=== PATIENT | male | born 1950 | race Caucasian/White ===

== ENCOUNTER 2017-09-16 17:01 | Inpatient (IN) ==
[2017-09-16] MEDS ORDERED: Pantoprazole 40 MG VIAL IVP ONE (17:02)
[2017-09-16] MEDS ORDERED: 0.9 % Sodium Chloride 1,000 ML IVC ONE ×2 (17:11)
--- NOTE | 2017-09-16 17:21 | Emergency Department Note ---
Disposition Clinical Impression: Symptomatic anemia GI bleed Qualifiers: GI bleed type/associated pathology: melena Qualified Code(s): K92.1 - Melena Disposition: Admitted As Inpatient Condition: Serious Time of Disposition: 19:09 General Adult HPI - General Chief complaint: ED Weakness Stated complaint: Weakness Time Seen by Provider: 09/16/17 17:02 Nursing Notes Reviewed: Yes Vital Signs Reviewed: Yes - History of Present Illness HPI Narrative: 67-year-old male complains of blood in his stools accommodation of bright red wiping and black stools. Patient states he has been having shortness of breath and lightheadedness over the past 2 days. Patient was seen at the [facility] earlier today. He is found to have hemoglobin 7.5 and transferred to a [place] for evaluation. Patient has a history of prior GI bleed. Patient's last transfusion was greater than 4 months ago over the summer. He denies any abdominal pain or chest pain. - Related Data Home Medications Medication Instructions Recorded Confirmed Aspirin Enteric Coated [Aspirin EC] 81 mg PO DAILY 09/16/17 09/16/17 Atorvastatin Calcium [Lipitor] 20 mg PO HS 09/16/17 09/16/17 Cyanocobalamin (Vitamin B-12) 1,000 mcg PO DAILY 09/16/17 09/16/17 [Vitamin B12] Desipramine [Norpramine] 150 mg PO HS 09/16/17 09/16/17 Ergocalciferol (VITAMIN D2) 400 unit PO BID 09/16/17 09/16/17 [Vitamin D] Ferrous Sulfate 650 mg PO TIDWM 09/16/17 09/16/17 Insulin NPH Human Isophane 30 unit SQ HS 09/16/17 09/16/17 [Novolin N] Losartan Potassium [Cozaar] 100 mg PO DAILY 09/16/17 09/16/17 Metformin HCl [Glucophage] 1,000 mg PO BID 09/16/17 09/16/17 Metoprolol Tartrate 75 mg PO BID 09/16/17 09/16/17 Omeprazole [PriLOSEC] 20 mg PO BIDAC 09/16/17 09/16/17 Perphenazine 4 mg PO BID 09/16/17 09/16/17 Perphenazine 16 mg PO HS 09/16/17 09/16/17 hydroCHLOROthiazide 25 mg PO DAILY 09/16/17 09/16/17 [Hydrochlorothiazide] Allergies Allergy/AdvReac Type Severity Reaction Status Date / Time lisinopril AdvReac See Verified 09/16/17 19:31 Comments Varenicline AdvReac See Verified 09/16/17 19:31 Comments All systems ED: reviewed and negative except as stated. Review of Systems: As Per HPI Constitutional: Reports: weakness. Denies: fever, chills Eyes: Denies: vision change ENT ED: Denies: congestion Cardiovascular: Reports: dyspnea on exertion. Denies: chest pain Gastrointestinal: Reports: melena. Denies: abdominal pain, nausea, vomiting, diarrhea, hematemesis Genitourinary: Denies: urgency, dysuria, frequency, hematuria Past Medical History - Past Medical History Attestation: Yes The following information was validated with the patient. Source: patient, nursing notes reviewed Physical Exam Vital Signs Temperature 97.5 F L 09/16/17 17:14 Pulse Rate 86 09/16/17 17:14 Respiratory Rate 18 09/16/17 17:14 Blood Pressure 151/63 09/16/17 17:14 O2 Sat by Pulse Oximetry 100 09/16/17 17:14 Temperature 97.5 F L 09/16/17 17:14 Pulse Rate 86 09/16/17 17:14 Respiratory Rate 18 09/16/17 17:14 Blood Pressure 151/63 09/16/17 17:14 O2 Sat by Pulse Oximetry 100 09/16/17 17:14 Oxygen Delivery Oxygen Delivery Room Air 59-year-old male who is alert and oriented 3 and in no acute distress. He has some visible pallor. Patient also has conjunctival pallor. Patient has multiple vital sign except for blood pressure. Blood pressure 151/63 - General Limitations: no limitations - Head Head exam: atraumatic, normocephalic, normal inspection - Eye Eye exam: Present: normal appearance, PERRL, EOMI - ENT ENT exam: normal exam, normal oropharynx, mucous membranes moist - Neck Neck exam: Present: normal inspection, full ROM, trachea midline - Chest Chest inspection: Present: normal inspection, symmetric chest wall rise - Respiratory Respiratory exam: Present: normal lung sounds bilaterally - Cardiovascular Cardiovascular exam: Present: regular rate, normal rhythm, normal heart sounds - Abdominal Exam Abdominal exam: Present: soft, Non-Tender. Absent: tenderness, distention, guarding, rebound, rigidity - Rectal Exam Rectal exam: Present: normal rectal tone, heme (+) stool, black stool - Extremities Exam Extremities exam: Present: normal inspection, full ROM. Absent: tenderness, normal capillary refill (Delayed), pedal edema - Back Exam Back exam: Present: normal inspection, full ROM. Absent: tenderness, CVA tenderness (R), CVA tenderness (L) - Neurological Exam Neurological exam: Present: alert, oriented X3 - Skin Skin exam: Present: warm, dry, intact, pallor Course Vital Signs Temperature 97.5 F L 09/16/17 17:14 Pulse Rate 86 09/16/17 17:14 Respiratory Rate 18 09/16/17 17:14 Blood Pressure 151/63 09/16/17 17:14 O2 Sat by Pulse Oximetry 100 09/16/17 17:14 Temperature 97.5 F L 09/16/17 17:22 Pulse Rate 91 09/16/17 18:53 Respiratory Rate 15 09/16/17 18:53 Blood Pressure 121/57 09/16/17 18:53 O2 Sat by Pulse Oximetry 100 09/16/17 18:53 Oxygen Delivery Oxygen Delivery Room Air Medical Decision Making - MDM Narrative Medical decision making narrative: Patient brought in from the [facility] for possible GI bleed. Patient has a hemoglobin of 7.5 at the [facility]. Stool guaiac here is positive for blood. Patient has a hemoglobin 7.6 for us here. Patient's symptomatic and will require transfusion 1 unit. Patient is receiving IV hydration of 2 L. Current plan is for patient to be admitted for transfusion and evaluation for upper or lower GI bleeding sources. Patient may require upper and lower endoscopy. Gastroenterology does not accept patients after [address] Merino of Gen. surgery is on board for any emergent interventions overnight. Gastroenterology will need to be consulted in the morning. Dr. Bowie the hospitalist as accepted patient for admission. Also spoke to Dr. Jeffries the hospitalist on the night crew to inform him that Dr. Campos is on board if Pt needs an endoscopic procedure overnight. - Lab Data Lab results reviewed: Yes I reviewed the patient's lab results. Lab results narrative: Short CBC 09/16/17 Range/Units 17:37 WBC 6.1 (4.3-11.1) K/mcL Hgb 7.6 L (12.9-16.9) g/dL Hct 24.0 L (37.5-50.1) % Plt Count 253 (140-400) K/mcL Neutrophils # 4.8 (1.6-8.9) K/mcL BMP 09/16/17 Range/Units 17:37 Sodium 135 L (136-145) mEq/L Potassium 4.9 (3.5-5.1) mEq/L Chloride 109 H (98-107) mEq/L Carbon Dioxide 19 L (23-29) mEq/L BUN 62 H (8-23) mg/dL Creatinine 1.00 (0.70-1.30) mg/dL Glucose 219 H (70-105) mg/dL Calcium 8.6 (8.6-10.3) mg/dL Cardiac Enzymes 09/16/17 Range/Units 17:37 Troponin I < 0.03 (< 0.04) ng/mL Result diagrams: 09/16/17 17:37 09/16/17 17:37 Lab Results 09/16/17 09/16/17 09/16/17 Range/Units 17:21 17:37 17:37 WBC 6.1 (4.3-11.1) K/mcL RBC 2.55 L (4.19-5.50) M/mcL Hgb 7.6 L (12.9-16.9) g/dL Hct 24.0 L (37.5-50.1) % MCV 94.1 (83.0-100.0) fL MCH 29.8 (28.0-33.3) pg MCHC 31.7 (31.6-35.5) g/dL RDW 14.2 (11.5-14.5) % Plt Count 253 (140-400) K/mcL MPV 10.5 (9.4-12.4) fL Immature Gran % 0.7 (0-4) % Seg Neutrophils % 77.7 % Lymphocytes % 15.2 % Monocytes % 4.9 % Eosinophils % 0.8 % Basophils % 0.7 % Neutrophils # 4.8 (1.6-8.9) K/mcL Lymphocytes # 0.9 (0.6-4.6) K/mcL Monocytes # 0.3 (0.0-1.3) K/mcL Eosinophils # 0.1 (0.0-0.6) K/mcL Basophils # 0.0 (0.0-0.2) K/mcL Sodium 135 L (136-145) mEq/L Potassium 4.9 (3.5-5.1) mEq/L Chloride 109 H (98-107) mEq/L Carbon Dioxide 19 L (23-29) mEq/L BUN 62 H (8-23) mg/dL Creatinine 1.00 (0.70-1.30) mg/dL Est GFR ( Amer) > 60 (> 60) Est GFR (Non-Af Amer) > 60 (> 60) BUN/Creatinine Ratio 62 H (6-26) Glucose 219 H (70-105) mg/dL POC Glucose (58-89) Calculated Osmolality 304 H (280-300) Calcium 8.6 (8.6-10.3) mg/dL Magnesium 1.8 (1.6-2.6) mg/dL Troponin I (< 0.04) ng/mL Stool Occult Blood Positive A (Negative) Blood Type Crossmatch 09/16/17 09/16/17 09/16/17 Range/Units 17:37 17:37 18:57 WBC (4.3-11.1) K/mcL RBC (4.19-5.50) M/mcL Hgb (12.9-16.9) g/dL Hct (37.5-50.1) % MCV (83.0-100.0) fL MCH (28.0-33.3) pg MCHC (31.6-35.5) g/dL RDW (11.5-14.5) % Plt Count (140-400) K/mcL MPV (9.4-12.4) fL Immature Gran % (0-4) % Seg Neutrophils % % Lymphocytes % % Monocytes % % Eosinophils % % Basophils % % Neutrophils # (1.6-8.9) K/mcL Lymphocytes # (0.6-4.6) K/mcL Monocytes # (0.0-1.3) K/mcL Eosinophils # (0.0-0.6) K/mcL Basophils # (0.0-0.2) K/mcL Sodium (136-145) mEq/L Potassium (3.5-5.1) mEq/L Chloride (98-107) mEq/L Carbon Dioxide (23-29) mEq/L BUN (8-23) mg/dL Creatinine (0.70-1.30) mg/dL Est GFR ( Amer) (> 60) Est GFR (Non-Af Amer) (> 60) BUN/Creatinine Ratio (6-26) Glucose (70-105) mg/dL POC Glucose 198 H (58-89) Calculated Osmolality (280-300) Calcium (8.6-10.3) mg/dL Magnesium (1.6-2.6) mg/dL Troponin I < 0.03 (< 0.04) ng/mL Stool Occult Blood (Negative) Blood Type O POSITIVE Crossmatch See Detail - Radiology Data Radiology results reviewed: Yes I reviewed the patient's radiology results. - EKG Data EKG #1 EKG attestation: Yes I reviewed and interpreted this EKG. EKG results narrative: EKG taken 09/16/2017 at 1730 hrs. shows a sinus rhythm at a rate of 81 bpm with no acute ST elevations or depressions in any leads, patient has some pronounced T-wave morphology for peaking. Patient's FL interval slightly shortened just on the 0.12 ms
[2017-09-16 17:46] LABS: Basophils % 0.7 %; Eosinophils # 0.1 K/mcL (0.0-0.6); Eosinophils % 0.8 %; Immature Granulocytes % 0.7 % (0-4); Lymphocytes # 0.9 K/mcL (0.6-4.6); Lymphocytes % 15.2 %; Mean Corpuscular HGB Conc 31.7 g/dL (31.6-35.5); Mean Corpuscular Hemoglobin 29.8 pg (28.0-33.3); Mean Corpuscular Volume 94.1 fL (83.0-100.0); Mean Platelet Volume 10.5 fL (9.4-12.4); Monocytes # 0.3 K/mcL (0.0-1.3); Monocytes % 4.9 %; Neutrophils # 4.8 K/mcL (1.6-8.9); Platelet Count 253 K/mcL (140-400); Red Blood Count 2.55 M/mcL (4.19-5.50); Red Cell Distribution Width 14.2 % (11.5-14.5); Segmented Neutrophils % 77.7 %
[2017-09-16 18:00] LABS: BUN/Creatinine Ratio 62 (6-26); Blood Urea Nitrogen 62 mg/dL (8-23); Calcium 8.6 mg/dL (8.6-10.3); Carbon Dioxide 19 mEq/L (23-29); Chloride 109 mEq/L (98-107); Glucose 219 mg/dL (70-105); Magnesium 1.8 mg/dL (1.6-2.6); Osmolality,Calculated 304 (280-300); Potassium 4.9 mEq/L (3.5-5.1); Sodium 135 mEq/L (136-145); eGFR For African Americans > 60 (> 60); eGFR For Non-African Americans > 60 (> 60)
[2017-09-16 18:03] LABS: Hemoglobin 7.6 g/dL (12.9-16.9)
--- NOTE | 2017-09-16 19:50 | Emergency Department Note ---
START Narrative - START START: I examined this patient and my medical decision-making was reviewed with the Resident Physician. I agree with the documented findings, disposition and treatment plan as described except to the extent set forth below. Melena with black, heme positive stool here, h/o gastric ulcer. Hgb 7-8 with weakness, dizziness, multiple co-morbidities. Transfusion indicated. Hemodynamically normal.
[2017-09-16] MEDS ORDERED: 0.9 % Sodium Chloride 250 ML ONE (22:01)
--- NOTE | 2017-09-16 22:48 | Internal Med History&Physical ---
Date of Encounter: 09/16/17 Time of Encounter: 22:41 Assessment and Plan (1) Acute blood loss anemia Current visit: Yes Status: Acute BRBPR, possibly hemorrhoids, diverticular bleed or other etiology. Surgery is on board tonight in case of urgent need of colonoscopy. Currently hemodynamically stable, symptoms slowly improving but still dizzy. NPO, Normal saline, serial H&H, continue IV protonix BID. Will need GI consult in AM (2) Chronic anemia Current visit: Yes Status: Acute States having a history of UGIB with EGD one month ago. Currently on PO iron supplementation. Keep NPO for now and we will finish 1 unit PRBC tonight with trending H&H. Transfuse additional as needed if hemoglobin < 7.0 (3) Hypertension Current visit: Yes Status: Acute Currently hemodynamically stable. Resume metoprolol, HCTZ, losartan but hold if SBP < 110. Qualifiers: Hypertension type: essential hypertension Qualified Code(s): I10 - Essential (primary) hypertension (4) Type 2 diabetes mellitus Current visit: Yes Status: Acute Hold metformin. NPO for now, do glucose checks Q6H and place on insulin sliding scale. Qualifiers: Diabetes mellitus complication status: with unspecified complications Diabetes mellitus computer terminal operator insulin use: with computer terminal operator use Qualified Code(s) : E11.8 - Type 2 diabetes mellitus with unspecified complications; Z79.4 - penitentiary (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; Z79.4 - terminal operator (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; Z79.4 - terminal operator (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; Z79.4 - penitentiary (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 (5) Hyperlipidemia Current visit: Yes Status: Acute resume statin Qualifiers: Hyperlipidemia type: unspecified Qualified Code(s): E78.5 - Hyperlipidemia , unspecified Internal Medicine - H&P: HPI History of present illness: Mr. Walker is a 67 year old male with history of HTN, diabetes, hpl presented for BRBPR. He sees it after wiping, dizziness, dyspnea for two days. Notes that he has hard stools and has pain with BM. He does not notice any bright blood inside stools. Also admits to dark stools but that started after taking iron supplements. He denies any chest pain, n/v, hematemesis. Denies any anticoagulation therapy, denies ETOH use. States he has a history of UGIB and [facility] for further eval. FOBT was + and hemoglobin noted to be 7.6. He is being transfused one unit PRBIC. He ois on aspirin therapy at home. Past Med Surg Social Fam HX - Past Medical History Medical history: diabetes, hyperlipidemia, hypertension, other Psychiatric history: depression - Social History Smoking Status: Current every day smoker Packs per day: 2 Smokeless Tobacco Status: No Alcohol use: none Drug use: none - Family History Father Living Status: Hx Family Cancer: Yes Internal Medicine - H&P: Meds Aspirin Enteric Coated [Aspirin EC] 81 mg PO DAILY 09/16/17 [History] Atorvastatin Calcium [Lipitor] 20 mg PO HS 09/16/17 [History] Cyanocobalamin (Vitamin B-12) [Vitamin B12] 1,000 mcg PO DAILY 09/16/17 [History ] Desipramine [Norpramine] 150 mg PO HS 09/16/17 [History] Ergocalciferol (VITAMIN D2) [Vitamin D] 400 unit PO BID 09/16/17 [History] Ferrous Sulfate 650 mg PO TIDWM 09/16/17 [History] Insulin NPH Human Isophane [Novolin N] 30 unit SQ HS 09/16/17 [History] Losartan Potassium [Cozaar] 100 mg PO DAILY 09/16/17 [History] Metformin HCl [Glucophage] 1,000 mg PO BID 09/16/17 [History] Metoprolol Tartrate 75 mg PO BID 09/16/17 [History] Omeprazole [PriLOSEC] 20 mg PO BIDAC 09/16/17 [History] Perphenazine 4 mg PO BID 09/16/17 [History] Perphenazine 16 mg PO HS 09/16/17 [History] hydroCHLOROthiazide [Hydrochlorothiazide] 25 mg PO DAILY 09/16/17 [History] 3 Allergy/AdvReac Type Severity Reaction Status Date / Time lisinopril AdvReac See Verified 09/16/17 19:31 Comments Varenicline AdvReac See Verified 09/16/17 19:31 Comments All Systems PM: A 10-system review of systems was performed and is negative for pertinent findings except as documented above in the HPI. - Constitutional Constitutional: no anorexia, no excessive sweating, no fatigue, no fever(s), no falls, no weakness - Cardiovascular Cardiovascular ROS IM: lightheadedness, no chest pain, no claudication, no edema , no irregular heart rhythm - Respiratory Respiratory: dyspnea, no cough, no hemoptysis, no wheezing, no snoring, no stridor, no pain on inspiration - Gastrointestinal Gastrointestinal: bloating, constipation, melena (after starting PO iron), no abdominal pain, no belching, no coffee ground emesis, no cramping, no diarrhea, no dyspepsia, no dysphagia, no hematemesis, no hematochezia, no loose stools, no tenesmus, no vomiting - Musculoskeletal Musculoskeletal ROS IM: no numbness, no tingling - Constitutional Vitals: Temp Pulse Resp BP Pulse Ox 98.6 F 100 16 124/67 97 09/16/17 22:15 09/16/17 22:15 09/16/17 22:15 09/16/17 22:15 09/16/17 22:15 - Head Head exam: Present: atraumatic, normocephalic - Eye Eye exam: Present: PERRL, conjuntiva pink, sclera anicteric Pupils: Present: PERRL - Neck Neck exam general surgery: Present: supple, trachea midline. Absent: lymphadenopathy - Respiratory Respiratory exam: Present: CTAB. Absent: accessory muscle use, rales, rhonchi, wheezes - Cardiovascular Cardiovascular exam: Present: RRR, +S1, +S2. Absent: diastolic murmur, gallop, rubs, systolic murmur - GI/Abdominal GI/Abdominal exam: Present: normal bowel sounds, soft, no peritoneal signs. Absent: distended, tenderness - Rectal Rectal exam: Present: black stool, normal inspection. Absent: fecal impaction Additional comments: no hemorroids appreciated grossly - Extremities Exam Extremities exam: Present: warm, radial pulses palpable and symmetrical. Absent : calf tenderness, cyanotic, pedal edema - Neurological Exam Neurological exam: Present: CN II-XII intact, oriented X3, no focal deficits. Absent: pronater drift, facial droop, speech deficit - Skin Skin exam: Present: dry, intact Internal Med - H&P Results - Labs CBC & Chem 7: 09/16/17 17:37 09/16/17 17:37
[2017-09-16] MEDS ORDERED: Ondansetron 4 MG/2 ML VIAL IVP PRN (23:22)
[2017-09-16] MEDS ORDERED: Acetaminophen 325 MG TABLET PO PRN (23:22)
[2017-09-16] MEDS ORDERED: Naloxone 0.4 MG/ML INJ IVP PRN (23:22)
[2017-09-16] MEDS ORDERED: *HR* Morphine 2 MG/ML SYRINGE IVP PRN (23:22)
[2017-09-17] MEDS: 0.9 % Sodium Chloride 1,000 ML IVC SCH ×2 (00:44→12:02)
[2017-09-17] MEDS: Insulin LISPRO 300 UNITS/3 ML VIAL SQ SCH ×4 (00:45→17:45)
[2017-09-17 03:49] LABS: Basophils % 0.4 %; Eosinophils # 0.1 K/mcL (0.0-0.6); Eosinophils % 2.1 %; Hematocrit 23.8 % (37.5-50.1); Hemoglobin 7.6 g/dL (12.9-16.9); Immature Granulocytes % 1.1 % (0-4); Lymphocytes % 20.3 %; Mean Corpuscular HGB Conc 31.9 g/dL (31.6-35.5); Mean Corpuscular Hemoglobin 29.5 pg (28.0-33.3); Mean Corpuscular Volume 92.2 fL (83.0-100.0); Mean Platelet Volume 10.3 fL (9.4-12.4); Monocytes # 0.4 K/mcL (0.0-1.3); Monocytes % 8.1 %; Neutrophils # 3.2 K/mcL (1.6-8.9); Platelet Count 204 K/mcL (140-400); Red Blood Count 2.58 M/mcL (4.19-5.50); Red Cell Distribution Width 15.2 % (11.5-14.5)
[2017-09-17 04:13] LABS: BUN/Creatinine Ratio 53 (6-26); Blood Urea Nitrogen 44 mg/dL (8-23); Calcium 8.6 mg/dL (8.6-10.3); Carbon Dioxide 22 mEq/L (23-29); Chloride 113 mEq/L (98-107); Glucose 159 mg/dL (70-105); Osmolality,Calculated 307 (280-300); Potassium 4.2 mEq/L (3.5-5.1); Sodium 141 mEq/L (136-145); eGFR For African Americans > 60 (> 60); eGFR For Non-African Americans > 60 (> 60)
[2017-09-17] MEDS: Pantoprazole 40 MG VIAL IVP SCH ×2 (05:53→17:11)
--- NOTE | 2017-09-17 08:42 | Electrocardiograph Report ---
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
[2017-09-17 08:45] LABS: INR 1.1; Prothrombin Time 12.1 Seconds (9.4-12.1)
[2017-09-17] MEDS ORDERED: VITAMIN D2 PO SCH (09:00)
[2017-09-17] MEDS ORDERED: [UNRECOGNIZED DRUG - OTHER] PO SCH (09:00)
[2017-09-17] MEDS ORDERED: Perphenazine 2 MG TABLET PO SCH (09:00)
[2017-09-17] MEDS: Cyanocobalamin (B-12) 1,000 MCG TABLET PO SCH (09:15)
[2017-09-17] MEDS: Perphenazine 2 MG TABLET PO SCH ×2 (09:15→15:45)
[2017-09-17] MEDS: Cholecalciferol (D-3) 1,000 UNIT TABLET PO SCH (09:15)
[2017-09-17] MEDS: hydroCHLOROthiazide 25 MG TABLET PO SCH (11:23)
--- NOTE | 2017-09-17 11:23 | Gastroenterology Consult Note ---
<Christina Portillo - Last Filed: 09/17/17 11:17> Date of Encounter: 09/17/17 Time of Encounter: 10:30 - Assessment and plan (1) Bright red blood per rectum Current Visit: Yes Status: Acute Assessment and plan: Pt presents with bright red blood per rectum. Hgb 7.6. He is on low dose asa, denies anticoagulants. Will prep for colonoscopy tomorrow. (2) Symptomatic anemia Current Visit: Yes Status: Acute Assessment and plan: Pt transfused. He had recent EGD at [facility], request for records sent, may need repeat EGD. (3) Type 2 diabetes mellitus Current Visit: Yes Status: Acute Qualifiers: Diabetes mellitus complication status: with unspecified complications Diabetes mellitus supervisor baking insulin use: with supervisor baking use Qualified Code(s) : E11.8 - Type 2 diabetes mellitus with unspecified complications; Z79.4 - tab machine operator (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; Z79.4 - long-term (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; Z79.4 - tab machine operator (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; Z79.4 - long-term (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 - Time Spent With Patient Total time spent is greater than 50% in coordination of care (as documented) at patient's floor/unit and/or counseling patient: GI History of Present Illness - Data of Consult Patient: new to practice Consult date: 09/17/17 Requesting Physician: Argelia Dhillon - Consult Narrative Reason for consult: BRBPR History of present illness: Mr. Walker is a 67 year old male with a pmhx of HTN, diabetes, and hyperlipidemia who presented for BRBPR. He reports he has been very dizzy and having dyspneic for the past 2 days. He also reports seeing bright red blood with wiping. He does report occasional hard stools and painful defecation. He also has dark stools but reports he is on iron supplements. He states he had an EGD last month at [facility] which showed 3 ulcers that were cauterized and he has been taking omeprazole. He denies any chest pain, n/v, hematemesis. The patient denies anticoagulation. He denies ETOH and drug abuse. He does take baby asa at home. Labs reveal a Hgb 7.6, INR 1.1, BUN 44, creat 0.83, troponin wnl, stool was positive for occult blood. Colonoscopy: ~2years ago at [facility] EGD: 08/14 [facility] (3 lesions cauterized per pt) records requested NSAIDS/ASA: asa Anticoagulants: none Past Med Surg Social Fam HX - Past Medical History Medical history: diabetes, hyperlipidemia, hypertension, other Psychiatric history: depression - Social History Smoking Status: Current every day smoker Packs per day: 2 Smokeless Tobacco Status: No Alcohol use: none Drug use: none - Family History Father Living Status: Hx Family Cancer: Yes Review of Systems: GI: as per [place] GENERAL: denies fever, has some chills EYES: denies yellow discoloration ENT: denies pain with swallowing or difficulty swallowing CARDIO: denies chest pain, palpitations RESP: Shortness of breath with exertion : denies change in color of urine NEURO: weakness HEME: occasional bruising MS: chronic joint and back pain. DERM: denies rash or itching PSYCH: history of anxiety and depression - Constitutional Vitals: Temp Pulse Resp BP Pulse Ox 97.9 F 101 16 133/70 98 09/17/17 10:57 09/17/17 10:57 09/17/17 10:57 09/17/17 10:57 09/17/17 10:57 Exam: CONSTITUTIONAL:~alert, no acute distress.~HEAD:~normocephalic.~EYES:~no jaundice.~NECK:~no obvious swelling.~HEART:~regular rate and rhythm, no murmurs. ~LUNGS:~bilateral good air entry.~ABDOMEN:~non distended, soft, non tender, no masses palpable, no organomegaly.~RECTAL EXAM:~Deferred.~EXTREMITIES:~no clubbing, cyanosis or edema.~SKIN:~no stigmata of chronic liver disease, pallor noted, scattered bruising.~NEUROLOGIC:~no obvious focal defect.~~~~ Results - Labs CBC & Chem 7: 09/17/17 03:22 09/17/17 03:22 Labs: Last Result Calcium 8.6 mg/dL (8.6-10.3) 09/17/17 03:22 Troponin I < 0.03 ng/mL (< 0.04) 09/16/17 17:37 Stool Occult Blood Positive (Negative) A 09/16/17 17:21 Entire Visit Hgb 7.6 g/dL (12.9-16.9) L 09/17/17 03:22 Hct 23.8 % (37.5-50.1) L 09/17/17 03:22 PT 12.1 Seconds (9.4-12.1) 09/17/17 08:33 - ABG ABG results: PT/INR, D-dimer PT 12.1 Seconds (9.4-12.1) 09/17/17 08:33 Consult Discharge Plan - Plan [facility]errals: [facility]Primary Care Provider[facility] - <Kary Torres - Last Filed: 09/17/17 17:55> Date of Encounter: 09/17/17 Time of Encounter: 18:00 - Time Spent With Patient Total time spent is greater than 50% in coordination of care (as documented) at patient's floor/unit and/or counseling patient: GI History of Present Illness - Data of Consult Requesting Physician: Argelia Dhillon - Consult Narrative History of present illness: Mr. Walker is a 67 year old male - Constitutional Vitals: Temp Pulse Resp BP Pulse Ox 98 F 96 16 138/67 98 09/17/17 15:37 09/17/17 15:37 09/17/17 15:37 09/17/17 15:37 09/17/17 15:37 Results - Labs CBC & Chem 7: 09/17/17 03:22 09/17/17 03:22 Labs: Last Result Calcium 8.6 mg/dL (8.6-10.3) 09/17/17 03:22 Troponin I < 0.03 ng/mL (< 0.04) 09/16/17 17:37 Stool Occult Blood Positive (Negative) A 09/16/17 17:21 Entire Visit Hgb 7.6 g/dL (12.9-16.9) L 09/17/17 03:22 Hct 23.8 % (37.5-50.1) L 09/17/17 03:22 PT 12.1 Seconds (9.4-12.1) 09/17/17 08:33 - ABG ABG results: PT/INR, D-dimer PT 12.1 Seconds (9.4-12.1) 09/17/17 08:33 - Attending Attestation I examined this patient and my medical decision-making was reviewed with the Resident Physician. I agree with the documented findings, disposition and treatment plan as described except to the extent set forth below.
[2017-09-17] MEDS ORDERED: Polyethylene Glycol 3350 255 GM POWDER PO ONE (11:37)
--- NOTE | 2017-09-17 14:38 | Internal Med Progress Note ---
Date of Encounter: 09/17/17 Time of Encounter: 10:00 - Assessment and plan (1) Bright red blood per rectum Current Visit: Yes Status: Acute Assessment and plan: Acute lower GI bleed - likely secondary to hemorrhoids Continue IV fluids, IV Protonix, avoid anticoagulants, hold Aspirin GI consult - scheduled for colonoscopy tomorrow Cardiac telemetry, labs in a.m. (2) Acute blood loss anemia Current Visit: Yes Status: Acute Assessment and plan: Acute on chronic anemia - the continued blood loss from the lower GI bleed - hemodynamically stable 2 units PRBC transfusion Monitor H&H closely, no active bleeding at this time Continue IV Protonix, IV fluids (3) Hypertension Current Visit: Yes Status: Chronic Assessment and plan: Essential hypertension, controlled, monitor Continue home dose of HCTZ, Cozaar, Lopressor Qualifiers: Hypertension type: essential hypertension Qualified Code(s): I10 - Essential (primary) hypertension (4) Type 2 diabetes mellitus Current Visit: Yes Status: Chronic Assessment and plan: Type 2 diabetes mellitus, [id number], hyperglycemia Continue insulin sliding scale, glucose checks Qualifiers: Diabetes mellitus complication status: with unspecified complications Diabetes mellitus termite renewal inspector insulin use: with termite renewal inspector use Qualified Code(s) : E11.8 - Type 2 diabetes mellitus with unspecified complications; Z79.4 - buttermilk drier operator (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; Z79.4 - buttermilk drier operator (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; Z79.4 - senior living (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; Z79.4 - senior living (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 (5) Hyperlipidemia Current Visit: Yes Status: Chronic Assessment and plan: Patient is on Lipitor at home Qualifiers: Hyperlipidemia type: unspecified Qualified Code(s): E78.5 - Hyperlipidemia , unspecified (6) DVT prophylaxis Current Visit: Yes Status: Acute Assessment and plan: Continue SCDs, avoid anticoagulants due to lower GI bleed - Time Spent With Patient 25 - 35 minutes - Subjective Interval history: I have seen and examined the patient. He is awake and alert. Not in any distress. Denies any chest pain or shortness of breath. Denies abdominal pain or vomiting. No fever. Hemodynamically stable. H&H is low. He will need 1 more unit PRBC today. Admitted for acute blood loss anemia secondary to lower GI bleed. Gastroenterology has evaluated the patient. Colonoscopy scheduled for tomorrow. - Constitutional Vitals: Temp Pulse Resp BP Pulse Ox 97.9 F 101 16 133/70 98 09/17/17 10:57 09/17/17 10:57 09/17/17 10:57 09/17/17 10:57 09/17/17 10:57 General appearance: Present: cooperative, A&O X 3, pleasant, no acute distress, answers questions appropriately - Head Head exam: Present: atraumatic - Eye Eye exam: Present: EOMI - ENT ENT exam: Present: mucous membranes dry - Neck Neck exam general surgery: Present: full ROM - Respiratory Respiratory exam: Present: CTAB. Absent: accessory muscle use, chest wall tenderness, rales, respiratory distress, rhonchi, wheezes, tachypnea - Cardiovascular Cardiovascular exam: Present: RRR, +S1, +S2 - GI/Abdominal GI/Abdominal exam: Present: soft, no peritoneal signs. Absent: distended, firm , guarding, tenderness - Extremities Exam Extremities exam: Present: radial pulses palpable and symmetrical. Absent: calf tenderness, cyanotic, pedal edema - Neurological Exam Neurological exam: Present: alert, oriented X3, no focal deficits. Absent: facial droop, speech deficit Internal Medicine: Result - Labs CBC & Chem 7: 09/17/17 03:22 09/17/17 03:22 Labs: Short CBC 09/17/17 Range/Units 03:22 WBC 4.7 (4.3-11.1) K/mcL Hgb 7.6 L (12.9-16.9) g/dL Hct 23.8 L (37.5-50.1) % Plt Count 204 (140-400) K/mcL Neutrophils # 3.2 (1.6-8.9) K/mcL BMP 09/17/17 03:22 Sodium 141 Potassium 4.2 Chloride 113 H Carbon Dioxide 22 L BUN 44 H Creatinine 0.83 Glucose 159 H Calcium 8.6 - ABG Interpretation ABG results: PT/INR, D-dimer PT 12.1 Seconds (9.4-12.1) 09/17/17 08:33 Consult Discharge Plan - Plan [facility]: [facility] [Primary Care Provider[facility] -
[2017-09-17] MEDS ORDERED: 0.9 % Sodium Chloride 250 ML ONE (14:47)
[2017-09-17] MEDS ORDERED: SODIUM CHLORIDE/NAHCO3/KCL/PEG 4,000 ML SOLN.RECON PO ONE (16:00)
[2017-09-17 20:32] LABS: Hematocrit 28.1 % (37.5-50.1); Hemoglobin 9.1 g/dL (12.9-16.9)
[2017-09-17] MEDS ORDERED: Perphenazine 8 MG TABLET PO SCH (21:00)
[2017-09-18] MEDS: Insulin LISPRO 300 UNITS/3 ML VIAL SQ SCH ×2 (00:01→06:45)
[2017-09-18 05:05] LABS: Basophils % 0.5 %; Eosinophils # 0.1 K/mcL (0.0-0.6); Eosinophils % 2.8 %; Hematocrit 25.8 % (37.5-50.1); Hemoglobin 8.1 g/dL (12.9-16.9); Immature Granulocytes % 0.5 % (0-4); Lymphocytes # 0.8 K/mcL (0.6-4.6); Lymphocytes % 20.5 %; Mean Corpuscular HGB Conc 31.4 g/dL (31.6-35.5); Mean Corpuscular Hemoglobin 28.9 pg (28.0-33.3); Mean Corpuscular Volume 92.1 fL (83.0-100.0); Mean Platelet Volume 10.7 fL (9.4-12.4); Monocytes # 0.4 K/mcL (0.0-1.3); Monocytes % 9.6 %; Neutrophils # 2.6 K/mcL (1.6-8.9); Platelet Count 218 K/mcL (140-400); Red Cell Distribution Width 15.2 % (11.5-14.5); Segmented Neutrophils % 66.1 %
[2017-09-18] MEDS: Pantoprazole 40 MG VIAL IVP SCH (05:06)
--- NOTE | 2017-09-18 08:00 | Anesthesia Evaluation PreOp ---
Date of Encounter: 09/18/17 Time of Encounter: 07:57 - Past History Cardiac History: HTN, Hyperlipidemia Pulmonary History: Smoker, Pack/yr (2 ppd) Other Medical History: Diabetes Type II Alcohol Use: none Drug use: none Medications and Allergies Aspirin Enteric Coated [Aspirin EC] 81 mg PO DAILY 09/16/17 [History] Atorvastatin Calcium [Lipitor] 20 mg PO HS 09/16/17 [History] Cyanocobalamin (Vitamin B-12) [Vitamin B12] 1,000 mcg PO DAILY 09/16/17 [History ] Desipramine [Norpramine] 150 mg PO HS 09/16/17 [History] Ergocalciferol (VITAMIN D2) [Vitamin D] 400 unit PO BID 09/16/17 [History] Ferrous Sulfate 650 mg PO TIDWM 09/16/17 [History] Insulin NPH Human Isophane [Novolin N] 30 unit SQ HS 09/16/17 [History] Losartan Potassium [Cozaar] 100 mg PO DAILY 09/16/17 [History] Metformin HCl [Glucophage] 1,000 mg PO BID 09/16/17 [History] Metoprolol Tartrate 75 mg PO BID 09/16/17 [History] Omeprazole [PriLOSEC] 20 mg PO BIDAC 09/16/17 [History] Perphenazine 4 mg PO BID 09/16/17 [History] Perphenazine 16 mg PO HS 09/16/17 [History] hydroCHLOROthiazide [Hydrochlorothiazide] 25 mg PO DAILY 09/16/17 [History] 3 Allergy/AdvReac Type Severity Reaction Status Date / Time lisinopril AdvReac See Verified 09/16/17 19:31 Comments Varenicline AdvReac See Verified 09/16/17 19:31 Comments - Meds/Allergy Pre-op Review Medications Reviewed: Yes Allergies Reviewed: Yes Beta Blockers on Current Med List: No (not given Low BP) Anesthesia Results - Labs 09/18/17 04:09 09/17/17 03:22 Echocardiogram Name: Duarte Walker Date of Study: 01/25/2016 Impressions: LVEF 60-65%. Mild concentric left ventricular hypertrophy. Mild left ventricular diastolic dysfunction. Normal right ventricular structure and function. Moderately dilated left atrium. No evidence of pulmonary hypertension. RVSP was not well obtained. No significant valvular dysfunction. Anesthesia Exam O2 Sat Height 1.85 m Weight 96.162 kg O2 Sat by Pulse Oximetry 99 O2 Sat by Pulse Oximetry 99 O2 Sat by Pulse Oximetry 99 O2 Sat by Pulse Oximetry 98 O2 Sat by Pulse Oximetry 99 O2 Sat by Pulse Oximetry 99 O2 Sat by Pulse Oximetry 99 O2 Sat by Pulse Oximetry 98 Vital Signs Temp Pulse Resp BP Pulse Ox 97.5 F L 86 18 151/63 100 09/16/17 17:14 09/16/17 17:14 09/16/17 17:14 09/16/17 17:14 09/16/17 17:14 Height: 6' Weight: 212# NPO (# of Hours): > 8 hrs Pain Scale: 0 Pain Scale Used: Numeric (1 - 10)
--- NOTE | 2017-09-18 08:14 | Anesthesia Evaluation PreOp ---
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: Seizures (not being medically treated; happened during blood transfusion) Other Medical History: Diabetes Type II, GERD Anesthesia History: No Prior Anesthetic Complications, Past Anesthesia Alcohol Use: none Drug use: none Medications and Allergies Aspirin Enteric Coated [Aspirin EC] 81 mg PO DAILY 09/16/17 [History] Atorvastatin Calcium [Lipitor] 20 mg PO HS 09/16/17 [History] Cyanocobalamin (Vitamin B-12) [Vitamin B12] 1,000 mcg PO DAILY 09/16/17 [History ] Desipramine [Norpramine] 150 mg PO HS 09/16/17 [History] Ergocalciferol (VITAMIN D2) [Vitamin D] 400 unit PO BID 09/16/17 [History] Ferrous Sulfate 650 mg PO TIDWM 09/16/17 [History] Insulin NPH Human Isophane [Novolin N] 30 unit SQ HS 09/16/17 [History] Losartan Potassium [Cozaar] 100 mg PO DAILY 09/16/17 [History] Metformin HCl [Glucophage] 1,000 mg PO BID 09/16/17 [History] Metoprolol Tartrate 75 mg PO BID 09/16/17 [History] Omeprazole [PriLOSEC] 20 mg PO BIDAC 09/16/17 [History] Perphenazine 4 mg PO BID 09/16/17 [History] Perphenazine 16 mg PO HS 09/16/17 [History] hydroCHLOROthiazide [Hydrochlorothiazide] 25 mg PO DAILY 09/16/17 [History] 3 Allergy/AdvReac Type Severity Reaction Status Date / Time lisinopril AdvReac See Verified 09/16/17 19:31 Comments Varenicline AdvReac See Verified 09/16/17 19:31 Comments - Meds/Allergy Pre-op Review Medications Reviewed: Yes Allergies Reviewed: Yes Beta Blockers on Current Med List: Yes Anesthesia Results - Labs 09/18/17 04:09 09/17/17 03:22 - Imaging EKG: report reviewed (09/16/2017 SINUS RHYTHM WITH SHORT CA INTERVAL) Additional studies: Echocardiogram Name: Duarte Walker Date of Study: 01/25/2016 Impressions: LVEF 60-65%. Mild concentric left ventricular hypertrophy. Mild left ventricular diastolic dysfunction. Normal right ventricular structure and function. Moderately dilated left atrium. No evidence of pulmonary hypertension. RVSP was not well obtained. No significant valvular dysfunction. Anesthesia Exam Vital Signs/O2 Sat/Glucose, Most Recent Temp Pulse Resp BP Pulse Ox 98.5 F 81 18 149/78 97 09/18/17 08:00 09/18/17 08:00 09/18/17 08:00 09/18/17 08:00 09/18/17 08:00 Blood Glucose* 177 Height: 6'1''/1.85 m Weight: 212 lbs/96 kg NPO (# of Hours): 8 Pain Scale: 0 Pain Scale Used: Numeric (1 - 10) - HEENT Pupil (Motor): EOMI Mallampati: II Teeth: Normal, Missing (missing multiple lower teeth) Denture Type: Upper: Complete Oral Opening: Greater than 3 - FIELD PRODUCER LOC: Oriented FIELD PRODUCER Motor: Normal RUE, Normal LUE, Normal RLE, Normal LLE, Normal Face FIELD PRODUCER Sensory: Normal: RUE, LUE, RLE, LLE, Face - Cardiac Rhythm: Regular Murmur: None - Pulmonary Breath Sounds: bilateral Clear Respiratory Effort: Symmetrical Anesthesia Assess/Plan ASA Score: 3 Modified Robert Scale for Level of Consciousness: Cooperative, oriented, and tranquil Anesthetic Plan: MAC Monitoring Plan: Standard Monitors
[2017-09-18] MEDS ORDERED: Propofol 500 MG/50 ML INFUS..BTL ONE (08:17)
[2017-09-18] MEDS ORDERED: Lidocaine -MPF 2% 2 ML VIAL ONE (08:21)
[2017-09-18] MEDS ORDERED: *HR* Metoprolol 5 MG/5 ML VIAL IVP ONE (08:31)
[2017-09-18] MEDS ORDERED: *HR* EPINEPHrine 1 MG/10 ML SYRINGE INTRATRACH PRN (08:46)
--- NOTE | 2017-09-18 09:31 | Discharge Summary ---
Addendum entered and electronically signed by Ruben Li DO 10:01: Patient also had polyp in ascending colon which was not removed because he was on aspirin. GI recommends repeat colonoscopy in one month. Patient has copy of colonoscopy procedure report. Also outpatient cbc ordered to monitor hgb. Follow up with pcp for results. Original Note: <Ruben Li - Last Filed: 09/18/17 09:27> Date of Encounter: 09/18/17 Time of Encounter: 09:27 - Discharge Diagnosis (1) GI bleed Priority: Primary Status: Acute Qualifiers: GI bleed type/associated pathology: anorectal hemorrhage Qualified Code(s) : K62.5 - Hemorrhage of anus and rectum (2) AVM (arteriovenous malformation) of colon with hemorrhage Priority: Secondary Status: Acute (3) Symptomatic anemia Priority: Secondary Status: Acute (4) Acute blood loss anemia Priority: Secondary Status: Acute (5) Hypertension Priority: Secondary Status: Chronic Qualifiers: Hypertension type: essential hypertension Qualified Code(s): I10 - Essential (primary) hypertension (6) Type 2 diabetes mellitus Priority: Secondary Status: Chronic Qualifiers: Diabetes mellitus complication status: with unspecified complications Diabetes mellitus retirement insulin use: with exterminator helper use Qualified Code(s) : E11.8 - Type 2 diabetes mellitus with unspecified complications; Z79.4 - intermediate school teacher (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; Z79.4 - assisted (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; Z79.4 - assisted (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; Z79.4 - intermediate school teacher (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 (7) Hyperlipidemia Priority: Secondary Status: Chronic Qualifiers: Hyperlipidemia type: unspecified Qualified Code(s): E78.5 - Hyperlipidemia , unspecified (8) DVT prophylaxis Priority: Secondary Status: Acute - Discharge Medications Home Medications: Aspirin Enteric Coated [Aspirin EC] 81 mg PO DAILY 09/16/17 [History] Atorvastatin Calcium [Lipitor] 20 mg PO HS 09/16/17 [History] Cyanocobalamin (Vitamin B-12) [Vitamin B12] 1,000 mcg PO DAILY 09/16/17 [History ] Desipramine [Norpramine] 150 mg PO HS 09/16/17 [History] Ergocalciferol (VITAMIN D2) [Vitamin D] 400 unit PO BID 09/16/17 [History] Ferrous Sulfate 650 mg PO TIDWM 09/16/17 [History] Insulin NPH Human Isophane [Novolin N] 30 unit SQ HS 09/16/17 [History] Losartan Potassium [Cozaar] 100 mg PO DAILY 09/16/17 [History] Metformin HCl [Glucophage] 1,000 mg PO BID 09/16/17 [History] Metoprolol Tartrate 75 mg PO BID 09/16/17 [History] Omeprazole [PriLOSEC] 20 mg PO BIDAC 09/16/17 [History] Perphenazine 4 mg PO BID 09/16/17 [History] Perphenazine 16 mg PO HS 09/16/17 [History] hydroCHLOROthiazide [Hydrochlorothiazide] 25 mg PO DAILY 09/16/17 [History] Allergies/Adverse Reactions: 3 Allergy/AdvReac Type Severity Reaction Status Date / Time lisinopril AdvReac See Verified 09/16/17 19:31 Comments Varenicline AdvReac See Verified 09/16/17 19:31 Comments Date of admission: 09/16/17 19:29 [facility] care physician: [facility] Consults: 09/16/17 23:26 Consult to Gastroenterology [CONS] Routine Consulting Provider: [facility] Reason for Consult: GIB Call Completed: No Discharging clinician: Ruben Li Anticipated date of discharge: 09/18/17 - Patient Status Disposition: Home, Self-Care Condition: Serious Functional capacity at discharge: independent ambulation Overall status at discharge: patient is progressing back to baseline - Ambulatory Orders Ambulatory Orders: Complete Blood Count w/o Diff [HEME] Time Frame: 1 Week, Facility: [facility], Location: Lab - Discharge Instructions Instructions: Gastrointestinal Bleeding (DC), Soft Diet (DC), Anemia (GEN) Follow Up [facility]: [facility]Primary Care Provider[facility] - (Web request for Dr. Carson, gastroenterology on 09/18.) Additional Instructions: Please follow up with primary care physician. Please return to the emergency room if he had recurrent symptoms of dyspnea, dizziness, passing out, bright red blood per rectum, nausea, bloody vomiting. - Diet and Activity Activity: increase activity as tolerated Diet: advance to your usual diet Hospital course: Mr. Walker is a 67 year old male resected with chief complaint of bright red blood per rectum. Patient also had symptoms of dizziness and dyspnea 2 days before admission. Patient had an EGD at the [facility] last month which showed 3 ulcers were cauterized. He takes omeprazole outpatient. On admission he did not have nausea, vomiting, hematemesis. His hemoglobin is 7.6 on admission. Patient had a positive stool occult blood. He was transfused 2 units of packed red blood cells. He underwent colonoscopy and was found to have bleeding and nonbleeding angiodysplastic lesions in the cecum and ascending colon which were cauterized. Colonoscopy also showed diverticulosis, nonbleeding internal hemorrhoids. After procedure patient is able to tolerate diet, is ambulating independently. Denies dizziness, dyspnea. Patient is ready to be discharged home. Plan is to follow-up with PCP outpatient. Continue omeprazole. - Time Spent with Patient Total time spent providing and/or coordinating discharge services: - Constitutional Vitals: Temp Pulse Resp BP Pulse Ox 98.5 F 81 18 149/78 97 09/18/17 08:00 09/18/17 08:00 09/18/17 08:00 09/18/17 08:00 09/18/17 08:00 General appearance: Present: cooperative, A&O X 3, pleasant, no acute distress, answers questions appropriately - Other Additional findings: General: Pleasant without distress HEENT: Head atraumatic, normocephalic, EOMI, PERRLA, neck nontender to palpation , absent lymphadenopathy, Moist Mucous Membranes, Heart: Regular rate and rhythm with no murmur Lungs: Clear to auscultation bilaterally Abdomen: Soft nontender, nondistended positive bowel sounds , large transverse and longitudinal abdominal scar. Skin: warm and dry Extremities: Absent pedal edema, Neuro: Cranial nerves II through XII intact, UE and LE sensation equal bilaterally, UE and LEstrength 5/5, alert oriented 3, Vascular: Pedal and radial pulses 2 out of 4 <Paramjit Tyler - Last Filed: 09/18/17 11:46> Date of Encounter: 09/18/17 - Discharge Diagnosis (1) Bright red blood per rectum Status: Acute (2) Acute blood loss anemia Status: Acute (3) Hypertension Status: Chronic Qualifiers: Hypertension type: essential hypertension Qualified Code(s): I10 - Essential (primary) hypertension (4) Type 2 diabetes mellitus Status: Chronic Qualifiers: Diabetes mellitus complication status: with unspecified complications Diabetes mellitus retirement insulin use: with retirement use Qualified Code(s) : E11.8 - Type 2 diabetes mellitus with unspecified complications; Z79.4 - assisted (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; 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 Walker is a 67 year old male - Time Spent with Patient Total time spent providing and/or coordinating discharge services: - Constitutional Vitals: Temp Pulse Resp BP Pulse Ox 98.5 F 90 18 172/77 97 09/18/17 08:00 09/18/17 10:20 09/18/17 08:00 09/18/17 10:20 09/18/17 08:00 - Attending Attestation I examined this patient and my medical decision-making was reviewed with the Resident Physician. I agree with the documented findings, disposition and treatment plan as described except to the extent set forth below. I have seen and examined the patient. He is awake and alert. States he feels better and wants to go home today. Colonoscopy has been done. Patient had a few nonbleeding colonic angiodysplastic lesions. Coagulation for hemostasis was successful. Patient does have a polyp which will need to be removed in about one month. No new events or complaints. Lungs bilateral good entry no wheezes or crackles. Abdomen soft nontender. Advised return if symptoms worsen. Watch for further GI bleed. Repeat CBC in one week. Follow-up with PCP.
[2017-09-18] MEDS: Cholecalciferol (D-3) 1,000 UNIT TABLET PO SCH (09:57)
[2017-09-18] MEDS: hydroCHLOROthiazide 25 MG TABLET PO SCH (09:57)
[2017-09-18] MEDS: Perphenazine 2 MG TABLET PO SCH (09:57)
[2017-09-18] MEDS: Cyanocobalamin (B-12) 1,000 MCG TABLET PO SCH (09:57)
[2017-09-18 10:20] VITALS: BP 172/77
[2017-09-18 11:07] LABS: Hematocrit 24.8 % (37.5-50.1); Hemoglobin 7.9 g/dL (12.9-16.9)
== END 2017-09-18 11:12 | disposition home or self-care (01) | DRG 378 ==
LOC: EMEROO 17:01 → 2ANU 19:29
PROVIDERS: ADMIT Internal Medicine; ATTEND Internal Medicine
PROC: ENDOCCB (2017-09-18 08:00)